=== PATIENT | male | born 1985 | race Caucasian/White ===

== ENCOUNTER 2023-09-13 16:05 | Emergency (ER) | payer OTHER, SELFPAY ==
--- NOTE | ~2023-09-13 | XR_ITS ---
EXAMINATION: XR CHEST CLINICAL INFORMATION: Chest pain COMPARISON: None available. TECHNIQUE: Frontal view of the chest was obtained. FINDINGS: Cardiac silhouette is normal in size. The lungs are mildly hypoinflated. There is mild asymmetric elevation of right hemidiaphragm. There is no lobar consolidation. No pleural effusion or pneumothorax. Partially visualized cervical spine hardware. XR/XR chest 1V IMPRESSION: No acute pulmonary pathology.
--- NOTE | 2023-09-13 10:01 | ECG_ITS ---
Test Reason : CHEST PAIN Blood Pressure : / mmHG Vent. Rate : 070 BPM Atrial Rate : 070 BPM P-R Int : 146 ms QRS Dur : 120 ms QT Int : 376 ms P-R-T Axes : 080 052 070 degrees QTc Int : 406 ms Normal sinus rhythm Minimal voltage criteria for LVH, may be normal variant ( Sokolow-Valenzuela ) Inferior infarct (cited on or before 13-SEP-2023) Abnormal ECG When compared with ECG of 13-SEP-2023 16:09, No significant change was found Referred By: Stone Hollingsworth Electronically Signed By:THADDEUS MENDIETA MD
--- NOTE | 2023-09-13 10:04 | ECG_ITS ---
Test Reason : chest pain Blood Pressure : / mmHG Vent. Rate : 071 BPM Atrial Rate : 071 BPM P-R Int : 144 ms QRS Dur : 098 ms QT Int : 368 ms P-R-T Axes : 044 047 048 degrees QTc Int : 399 ms Normal sinus rhythm Inferior infarct (cited on or before 13-SEP-2023) Possible Anterolateral infarct , age undetermined , possiby right sided leads No evidence of RV involvement Abnormal ECG When compared with ECG of 13-SEP-2023 16:16, Serial changes of evolving Inferior infarct Present Referred By: Stone Hollingsworth Electronically Signed By:THADDEUS MENDIETA MD
--- NOTE | 2023-09-13 16:06 | ECG_ITS ---
Test Reason : CHEST PAIN Blood Pressure : / mmHG Vent. Rate : 073 BPM Atrial Rate : 073 BPM P-R Int : 148 ms QRS Dur : 114 ms QT Int : 372 ms P-R-T Axes : 079 047 073 degrees QTc Int : 409 ms Normal sinus rhythm Inferior infarct , possibly acute ACUTE TX / STEMI Consider right ventricular involvement in acute inferior infarct Abnormal ECG No previous ECGs available Referred By: Carlotta Trejo Electronically Signed By:THADDEUS MENDIETA MD
[2023-09-13 16:16] VITALS: BP 141/60; PULSE 70; RESP 18; TEMP 36.8; O2SAT 98; BMI 33.1
[2023-09-13 16:17] VITALS: BP 141/60; PULSE 66; RESP 14
[2023-09-13] MEDS: Aspirin 81 MG TAB.CHEW 324 MG PO (16:21)
[2023-09-13] MEDS: Atorvastatin Calcium 80 MG TABLET PO (16:21)
[2023-09-13] MEDS: fentaNYL citrate/PF 100 MCG/2 ML VIAL IVPUSH (16:22)
--- NOTE | 2023-09-13 16:25 | ED.CHESTPAIN ---
HPI - Chest Pain General Chief Complaint: Chest Pain Stated Complaint: mild heart attack? Time Seen by Provider: 09/13/23 16:14 Source: patient Mode of arrival: ambulatory Limitations: no limitations History of Present Illness HPI narrative: 38-year-old male with a history of diabetes mellitus, hypertension who presents emergency department for evaluation of sternal chest pain radiating to the back. The patient states he was playing basketball when he started to have chest pain. He stopped playing basketball but the pain continued. He went home to shower in the pain became worse. He states that the pain is located in the center of the chest radiates to his back he then developed jaw pain, vomited once, felt lightheaded as if he was going to pass out. He then had his brother bring him to the emergency department for evaluation. At triage he had an EKG that was consistent with an inferior wall FL, he was then immediately was brought back to resuscitation room. Patient states that he is in the [employer] he is active , he works in logistics. He states he has never had chest pain with exertion. Related Data Allergies Allergy/AdvReac Type Severity Reaction Status Date / Time No Known Allergies Allergy Verified 09/13/23 16:15 Review of Systems Review of Systems: Yes all other systems are reviewed and are negative [facility] Past Medical History [facility] Narrative: Social history: Patient is in the [employer]. He is active . He works in logistics. He denies tobacco use. He occasionally drinks alcohol. He denies drug use. Medical History High cholesterol Hypertension Social History Social History Alcohol intake: current Alcohol intake frequency: holidays/special occasions only Smoked in Last 30 Days: No Use of substances other than those prescribed or required for medical reasons: No Advance Directives: No Advance Directives Information Provided: No Physical Exam Vital Signs: Vital Signs: Last Vital Signs Temp 98.2 F 09/13/23 16:16 Pulse 71 09/13/23 16:38 Resp 13 09/13/23 16:38 BP 116/69 09/13/23 16:38 Pulse Ox 99 09/13/23 16:38 O2 Del Method Nasal Cannula 09/13/23 16:38 O2 Flow Rate 2 09/13/23 16:38 BMI result Body Mass Index 33.1 Vital signs were normal Exam: General: Awake, alert in no distress Head: Normocephalic, atraumatic EENT: PERRL, Lids normal, sclera normal, conjunctiva normal, nose normal , ears normal, throat without erythema or exudates Neck: Supple, no adenopathy Lung: breath sounds symmetric, no wheezing, rales or rhonchi Chest: symmetric movement, nontender Heart: regular rate and rhythm, normal S1, S2 no murmurs or rubs Abdomen: soft, non-tender, nondistended, normal bowel sounds Back: no vertebral tenderness, no CVAT Extremities: no deformities, moves all extremities symmetrically Neuro: Awake, alert, oriented, normal speech, cranial nerves intact, moves all extremities symmetrically Psych: Pleasant, cooperative Course Reevaluation(s) Reevaluation #1: I personally called [facility] spoke to Yanci to assist in transport. [facility] states no ALS units available. Requesting patients insurance information therefore delaying care. Waiting to hear back. Time: 16:19 Reevaluation #2: [place] on is way per Yanci Bradshaw. Time: 16:26 Medications Administered Discontinued Medications Generic Name Dose Route Start Last Admin Trade Name Freq PRN Reason Stop Dose Admin Aspirin 324 mg 09/13/23 16:17 09/13/23 16:21 Aspirin 81 Mg Tab.Chew PO 09/13/23 16:18 324 mg ONCE STA Administration Atorvastatin Calcium 80 mg 09/13/23 16:18 09/13/23 16:21 Atorvastatin Calcium 80 Mg Tablet PO 09/13/23 16:19 80 mg ONCE ONE Administration Fentanyl 100 mcg 09/13/23 16:17 09/13/23 16:22 Fentanyl Citrate/Pf 100 Mcg/2 Ml Vial IVPUSH 09/13/23 16:18 100 mcg ONCE ONE Administration Protocol Fentanyl 50 mcg 09/13/23 16:35 09/13/23 16:37 Fentanyl Citrate/Pf 100 Mcg/2 Ml Vial IVPUSH 09/13/23 16:36 50 mcg ONCE ONE Administration Protocol Fentanyl 50 mcg 09/13/23 16:44 09/13/23 16:48 Fentanyl Citrate/Pf 100 Mcg/2 Ml Vial IVPUSH 09/13/23 16:45 50 mcg ONCE ONE Administration Protocol Fentanyl 50 mcg 09/13/23 16:57 09/13/23 17:01 Fentanyl Citrate/Pf 100 Mcg/2 Ml Vial IVPUSH 09/13/23 16:58 50 mcg ONCE ONE Administration Protocol Heparin Sodium (Porcine) 4,000 unit 09/13/23 16:24 09/13/23 16:33 Heparin Sodium,Porcine 5,000 Unit/Ml Vial IVPUSH 09/13/23 16:25 4,000 unit ONCE ONE Administration Sodium Chloride 1,000 mls @ 999 mls/hr 09/13/23 16:17 09/13/23 16:26 Ns IV 09/13/23 17:17 999 mls/hr .Q1H1M STA Administration Ticagrelor 180 mg 09/13/23 16:24 09/13/23 16:32 Ticagrelor 90 Mg Tablet PO 09/13/23 16:25 180 mg ONCE ONE Administration Medical Decision Making Medical Decision Making MDM Narrative: 38-year-old male with history of diabetes mellitus hypertension who presents emergency department for evaluation of chest pain, jaw pain, back pain, nausea, lightheadedness is who is going to pass out, symptoms developed while he was playing basketball. Patient states he has had the pain for approximately 1-1/2 hours prior to coming to emergency department. In triage his vital signs were normal, EKG revealed inferior wall FL and he was brought immediately back to resuscitation room. Patient was placed on a laboratory monitor and defibrillation pads were placed on his chest. He was given fentanyl 100 mcg IV with improve his pain from 7/10 to 5/10. He was also treated with Brilinta 180 mg orally, aspirin 324 mg to chew, atorvastatin 80 mg orally, heparin 4000 unit bolus. One-view chest x-ray revealed normal mediastinum. Right-sided EKG revealed revealed no elevation in V1 V2. I did discuss the patient's presentation with the proposal manager writer at [facility], Dr. Kathy Helms and he accepted the patient in transfer. [facility] ambulance was called for immediately upon evaluating of the patient's EKG and we are currently waiting for transport. 16:59 Patient did get improvement of his pain from 7/10 to 5/10 with IV fentanyl. Patient was treated with fentanyl 50 mcg IV x3 doses with significant improvement of his pain, he states his pain is now 3 to 4/10. Paramedics were at the bedside and the patient will be transported to [facility], he will go directly to the pathology laboratory aides teacher. Patient also received normal saline IV x1 L. Differential Diagnosis Differential Diagnoses: The differential diagnosis associated with the presentation includes Differential diagnosis includes but is not limited to inferior wall myocardial infarction, right ventricle myocardial infarction, aortic dissection Admission/Observation Consideration of admission/observation: Escalation of care including admission/observation considered Lab Data MDM Lab Attestation statement: I reviewed the patient's lab results. My independent interpretation patient's laboratory evaluation is as follows: WBC elevated 12,000. H&H elevated 18.1 and 53.0. Platelet count normal 374,000. Coags pending. BUN and creatinine elevated 25 and 1.42. AST and ALT elevated 61 and 54. High sensitive troponin I was detectable but not elevated at 34.7 (normal range less than 3.5-35). BNP was below detectable limits. 09/13/23 16:30 09/13/23 16:30 Labs: Lab Results 09/13/23 Range/Units 16:30 WBC 12.0 H (4.8-10.8) X10*3/uL RBC 6.30 H (4.60-5.80) X10*6/uL Hgb 18.1 H (14.0-18.0) g/dl Hct 53.0 H (42.0-52.0) % MCV 84.1 (80.0-98.0) fL MCH 28.7 (27.0-33.0) pg MCHC 34.2 (31.0-36.0) g/dl RDW 13.1 (11.0-16.0) % Plt Count 374 (160-400) X10*3/uL MPV 8.6 L (9.4-12.4) fL Immature Gran % (Auto) 0.4 (0.0-0.4) % Neut % (Auto) 63.1 (45-73) % Lymph % (Auto) 26.7 (20-40) % [place] % (Auto) 7.3 (2-11) % Eos % (Auto) 1.7 (0-4) % Baso % (Auto) 0.8 (0-2) % Lymph # (Auto) 3.2 (1.2-4.9) X10*3/uL [place] # (Auto) 0.9 (0.1-1.2) X10*3/uL Eos # (Auto) 0.2 (0.0-0.4) X10*3/uL Baso # (Auto) 0.1 (0.0-0.2) X10*3/uL Abs Immat Gran (auto) 0.05 H (0.00-0.03) X10*3/uL Absolute Neuts (auto) 7.6 (2.0-8.3) x10*3/uL Absolute Nucleated RBC 0.000 (0.0-0.012) X10*3/uL Nucleated RBC % (auto) 0.0 (0.0-0.2) /100WBC PT 11.3 (11.1-13.3) SEC INR 0.9 (0.9-1.1) APTT Cancelled Sodium 141 (135-145) mmol/L Potassium 4.1 (3.3-5.1) mmol/L Chloride 103 (96-108) mmol/L Carbon Dioxide 24 (22-29) mmol/L Anion Gap 18 (12-20) BUN 25 H (9-16) mg/dL Creatinine 1.42 H (0.5-1.4) mg/dL Estim Creat Clear Calc 87.0 Estimated GFR 56 Random Glucose 104 (60-115) mg/dL Calcium 10.6 H (8.4-10.2) mg/dL Total Bilirubin 0.7 (0.0-1.0) mg/dL AST 61 H (5-37) U/L ALT 54 H (0-40) U/L Alkaline Phosphatase 61 (39-117) U/L Troponin I High Sens 34.7 (<3.5-35.0) ng/L B-Natriuretic Peptide < 10 (<100) pg/mL Total Protein 8.8 H (6.5-8.0) g/dL Albumin 5.0 (3.5-5.0) g/dL Lipase 43 (8-78) U/L Independent Interpretation I performed an independent interpretation of an: EKG and Plain X-Ray Interpretation: My interpretation patient's EKGs are as follows: 16:09 hours: Sinus rhythm rate of 73, normal PA interval, prolonged QRS duration of 114 milliseconds, normal QTC of 409 milliseconds, [address] segment elevation in leads 2, 3 and AVF greater than 2 mm, Q-waves 2, 3 and AVF, less than [address] segment depression V1 through V3. No old EKG for comparison 16:16 hours: Normal sinus rhythm rate of 70, normal PA interval, prolonged QRS interval 120 milliseconds, normal QTC of 406 milliseconds, persistent ST segment elevation V2 through V3 as well as persistent ST segment depression V1 through V3 no change from the 1st EKG . 16:27 hours: Right-sided leads: Normal sinus rhythm with a rate of 71, persistent ST segment elevation 2 3 and F with no ST segment elevation V1 or V2. ST segment elevation in lead 2 and lead 3 appear to be similar My interpretation of the patient's one-view chest x-ray is as follows: Normal mediastinum, no other acute abnormalities Radiology Impression Discussion of test interpretation with radiology: I have reviewed the radiologist's reading. Radiologist Impression: EXAMINATION: XR CHEST CLINICAL INFORMATION: Chest pain COMPARISON: None available. TECHNIQUE: Frontal view of the chest was obtained. FINDINGS: Cardiac silhouette is normal in size. The lungs are mildly hypoinflated. There is mild asymmetric elevation of right hemidiaphragm. There is no lobar consolidation. No pleural effusion or pneumothorax. Partially visualized cervical spine hardware. XR/XR chest 1V IMPRESSION: No acute pulmonary pathology. Dictated By: Jhonny Babb MD Independent Historian Clinical information obtained from an independent historian. History obtained from or confirmed by: Other (Brother) Critical Care Time Critical Care Time Critical Care Time: Yes Total Critical Care Time: 45 Attestation: Critical Care: The patient was critically ill with a high probability of imminent or life threatening deterioration. I spent greater than 30 minutes of discontinuous time evaluating the patient,delivering critical care at the bedside, discussing and evaluating pertinent data with consultants. Critical care time does not include time spent performing separately billable procedures or teaching. Total time spent performing critical care was 45 minutes. Discharge Plan Discharge Clinical Impression: Acute inferior myocardial infarction Patient Disposition: [facility] Transfer Details: [facility] pathology laboratory aides teacher, accepting proposal manager writer is Dr. Kathy Helms Discharge Date/Time: 09/13/23 17:03
[2023-09-13] MEDS: 0.9 % Sodium Chloride 1,000 ML 999 ML IV (16:26)
[2023-09-13] MEDS: Ticagrelor 90 MG TABLET 180 MG PO (16:32)
[2023-09-13] MEDS: Heparin Sodium,Porcine 5,000 UNIT/ML VIAL 4000 UNIT IVPUSH (16:33)
[2023-09-13] MEDS: fentaNYL citrate/PF 100 MCG/2 ML VIAL 50 MCG IVPUSH ×3 (16:37→17:01)
[2023-09-13 16:38] VITALS: BP 116/69; PULSE 71; RESP 13; O2SAT 99
[2023-09-13 16:41] LABS: MANUAL DIFF FLAG NO
[2023-09-13 16:43] LABS: Basophils Absolute Auto 0.1 X10*3/uL (0.0-0.2); Basophils Percent Auto 0.8 % (0-2); Eosinophils Absolute Auto 0.2 X10*3/uL (0.0-0.4); Eosinophils Percent Auto 1.7 % (0-4); Hemoglobin 18.1 g/dl (14.0-18.0); Imm Gran Abs Auto 0.05 X10*3/uL (0.00-0.03); Imm Gran Pct Auto 0.4 % (0.0-0.4); Lymphocytes Absolute Auto 3.2 X10*3/uL (1.2-4.9); Lymphocytes Percent Auto 26.7 % (20-40); Mean Corpuscular HGB Conc 34.2 g/dl (31.0-36.0); Mean Corpuscular Hemoglobin 28.7 pg (27.0-33.0); Mean Corpuscular Volume 84.1 fL (80.0-98.0); Mean Platelet Volume 8.6 fL (9.4-12.4); Monocytes Absolute Auto 0.9 X10*3/uL (0.1-1.2); Monocytes Percent Auto 7.3 % (2-11); Neutrophils Absolute Auto 7.6 x10*3/uL (2.0-8.3); Neutrophils Percent Auto 63.1 % (45-73); Platelet Count 374 X10*3/uL (160-400); Red Cell Distribution Width 13.1 % (11.0-16.0)
--- NOTE | 2023-09-13 16:52 | PC.NURSE ---
[facility] on scene
--- NOTE | 2023-09-13 17:03 | PC.NURSE ---
EMS left our ED at 17:03
[2023-09-13 17:05] LABS: Alanine Aminotransferase 54 U/L (0-40); Alkaline Phosphatase 61 U/L (39-117); Anion Gap 18 (12-20); Aspartate Amino Transferase 61 U/L (5-37); B Type Natriuretic Peptide < 10 pg/mL (<100); Bilirubin Total 0.7 mg/dL (0.0-1.0); Blood Urea Nitrogen 25 mg/dL (9-16); Calcium 10.6 mg/dL (8.4-10.2); Carbon Dioxide 24 mmol/L (22-29); Chloride 103 mmol/L (96-108); Estimated Glomerular Filt Rate 56; Glucose Random 104 mg/dL (60-115); Lipase 43 U/L (8-78); Potassium 4.1 mmol/L (3.3-5.1); Sodium 141 mmol/L (135-145); Total Protein 8.8 g/dL (6.5-8.0)
[2023-09-13 17:07] LABS: Troponin-I High Sensitivity 34.7 ng/L (<3.5-35.0)
--- NOTE | 2023-09-13 17:08 | PC.NURSE ---
Report called and given to [place] TONEY at [facility] labeler on this patient. Attending MD gave report to EMS.
[2023-09-13 17:14] LABS: INTERNATIONAL NORM RATIO 0.9 (0.9-1.1); Prothrombin Time 11.3 SEC (11.1-13.3)
== END 2023-09-13 17:03 | disposition short-term general hospital (02) ==
PROVIDERS: Emergency Provider Emergency Medicine Emergency Medical Services
DX: I21.19 ST elevation (STEMI) myocardial infarction involving other coronary artery of inferior wall (principal); I10 Essential (primary) hypertension; E11.9 Type 2 diabetes mellitus without complications
CPT/HCPCS: 36415; 71045; 80053; 83690; 83880; 84484; 85025; 85610; 85730; 93005; 96374; 96375; 96376; 99284; 99285; J1644; J3010

== ENCOUNTER → 2023-09-13 16:06 | Outpatient (BNV) | payer OTHER, SELFPAY | PROVIDERS: Emergency Provider Emergency Medicine Emergency Medical Services; Visit Provider Internal Medicine Cardiovascular Disease | DX: R07.9 Chest pain, unspecified (principal) | CPT/HCPCS: 93010 ==